=== PATIENT | female | born 1995 | race American Indian/Alaskan Native ===

== ENCOUNTER 2020-05-26 11:48 | Outpatient (CLI) | payer OTHER | END 2020-05-26 13:51 | disposition home or self-care (01) | LOC: NST 11:48 | PROVIDERS: ATTEND Specialist | DX: Z34.83 Encounter for supervision of other normal pregnancy, third trimester (principal) ==

== ENCOUNTER 2020-06-02 09:17 | Outpatient (CLI) | payer OTHER | END 2020-06-02 09:41 | disposition home or self-care (01) | LOC: NST 09:17 | PROVIDERS: ATTEND Specialist | DX: Z34.83 Encounter for supervision of other normal pregnancy, third trimester (principal) ==